=== PATIENT | female | born 1955 | race Caucasian/White ===

== ENCOUNTER → 2022-08-18 | Outpatient (CLI) | payer MEDICARE | END | disposition home or self-care (01) | LOC: LABWHC1 10:46 | PROVIDERS: ATTEND Nurse Practitioner Family | DX: K90.0 Celiac disease (principal) | CPT/HCPCS: 36415; 83516 ==

== ENCOUNTER → 2023-09-20 | Outpatient (CLI) | payer MEDICARE ==
--- NOTE | 2023-09-21 18:08 | MR ---
EXAMINATION TYPE: MR knee LT wo con DATE OF EXAM: 09/20/2023 COMPARISON: None HISTORY: Left knee pain x 6 mos. TECHNIQUE: Multiplanar, multisequence imaging of the left knee is performed without IV contrast. FINDINGS: There is a focal area of abnormal signal intensity in the subchondral area of the medial aspect of th e medial femoral condyle consistent with an osteochondral defect. There is no loose isolated bone fra gment. There is marked osteoarthritis in the medial compartment where there is moderate to marked cartilage thinning, hypertrophic spurring and displacement of the medial meniscus medially. There are complex t ears of the body and posterior horn of the medial meniscus. There is mild osteoarthritic change of the lateral compartment and knee where there is hypertrophic s purring and mild cartilage thinning. There is a vertical tear of the posterior horn of the lateral me niscus. The cruciate and medial collateral ligaments are intact. There is marked abnormal signal intensity in the proximal lateral collateral ligament at its proximal attachment consistent with partial tear or severe strain. The patellar and quadriceps tendons are normal. There is abnormal diffuse signal intensity with linear cartilaginous defects in the cartilage of the medial patellar facet consistent with chondromalacia patella . There is a small joint effusion. 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 Impression: 1. 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 2. Severe strain or partial tearing of the proximal lateral collateral ligament. 3. Complex tear of the medial meniscus and vertical tear of the posterior horn of the lateral meniscu s. 4. Small joint effusion and Gracia's cyst as described above.
== END | disposition home or self-care (01) ==
LOC: RADMRIMAIN 10:45
PROVIDERS: ATTEND Orthopaedic Surgery
DX: M17.12 Unilateral primary osteoarthritis, left knee (principal); S83.242A Other tear of medial meniscus, current injury, left knee, initial encounter; S83.282A Other tear of lateral meniscus, current injury, left knee, initial encounter

== ENCOUNTER 2023-10-05 09:31 | Day surgery (SDC) | payer MEDICARE ==
[2023-09-29 14:07] VITALS: BMI 31.2
[2023-10-05 10:46] VITALS: TEMP 97.4
[2023-10-05] MEDS: LIDOCAINE 1% (10MG/ML) FOR IV START INTRADERMA ONE (10:46)
[2023-10-05] MEDS: IV FLUID CONTINUATION 1,000 ML IV ONE ×2 (10:46)
[2023-10-05] MEDS: LACTATED RINGERS 1,000 ML IV SCH (10:46)
[2023-10-05] MEDS ORDERED: PROPOFOL 10 MG/ML 20 ML VIAL IV ONE (11:27)
--- NOTE | 2023-10-05 11:43 | P.PCN ---
Date of Procedure: 10/05/23 Procedure(s) Performed: BRIEF HISTORY: Patient is a 68-year-old pleasant white female scheduled for an elective colonoscopy as a part of screening for colon cancer. PROCEDURE PERFORMED: Colonoscopy. PREOPERATIVE DIAGNOSIS: Screening for colon cancer. IV sedation per Anesthesia. PROCEDURE: After informed consent was obtained, the patient, was brought into the endoscopy unit. IV sedation was administered by Anesthesia under continuous monitoring. Digital rectal examination was normal. Initially the Olympus CF-160 flexible video colonoscope was then inserted in the rectum, gradually advanced into the cecum without any difficulty. Careful examination was performed as the scope was gradually being withdrawn. Ileocecal valve and the appendiceal orifice were visualized and appeared normal. Prep was excellent. Mucosa of the cecum, ascending colon, transverse colon, descending colon, sigmoid colon, and rectum appeared normal. Retroflexion was performed in the rectum and no lesions were seen. The patient tolerated the procedure well. IMPRESSION: Normal-appearing colon from rectum to cecum with no evidence of colorectal neoplasia. RECOMMENDATIONS: Findings of this examination were discussed with the patient as well as her family. She was advised to have repeat screening colonoscopy in 10 years..
[2023-10-05 12:14] VITALS: BP 138/90; PULSE 72; RESP 20
== END 2023-10-05 12:15 | disposition home or self-care (01) ==
LOC: ORWHC2ENDO 09:31
PROVIDERS: ATTEND Internal Medicine Gastroenterology
DX: K21.9 Gastro-esophageal reflux disease without esophagitis (principal); K58.9 Irritable bowel syndrome, unspecified; J45.909 Unspecified asthma, uncomplicated; E78.5 Hyperlipidemia, unspecified; Z79.899 Other long term (current) drug therapy; Z79.51 Long term (current) use of inhaled steroids
CPT/HCPCS: J2704; G0121

== ENCOUNTER 2023-12-23 06:04 | Day surgery (SDC) | payer MEDICARE ==
[2023-12-17 08:30] VITALS: BMI 32.2
[2023-12-23] MEDS ORDERED: LIDOCAINE 1% (10MG/ML) FOR IV START INTRADERMA PRN (06:29)
[2023-12-23] MEDS ORDERED: MIDAZOLAM 2 MG/2 ML VIAL IV PRN (06:29)
[2023-12-23] MEDS ORDERED: fentaNYL (PF) 50 MCG/ML 2 ML AMP IVP PRN (06:29)
[2023-12-23] MEDS: IV FLUID CONTINUATION 1,000 ML IV ONE (06:55)
[2023-12-23] MEDS: ONDANSETRON 4 MG/2 ML VIAL IVP ONE (07:08)
[2023-12-23] MEDS: LACTATED RINGERS 1,000 ML IV SCH (07:08)
[2023-12-23] MEDS: DEXAMETHASONE SOD PHOSPHATE 4 MG/ML 1 ML VIAL IV ONE (07:08)
[2023-12-23] MEDS ORDERED: fentaNYL (PF) 50 MCG/ML 2 ML AMP ONE (07:23)
[2023-12-23] MEDS ORDERED: MIDAZOLAM 2 MG/2 ML VIAL ONE (07:23)
[2023-12-23] MEDS ORDERED: PROPOFOL 10 MG/ML 20 ML VIAL IV ONE (07:23)
[2023-12-23] MEDS ORDERED: LIDOCAINE 1% INJ 10MG/ML (20 ML MDV) ONE (07:23)
[2023-12-23] MEDS ORDERED: KETOROLAC 15 MG/ML 1 ML VIAL ONE (07:23)
[2023-12-23] MEDS: BUPIVACAINE (PF) 0.25% 30 ML VIAL MISCELLANE ONE (08:02)
[2023-12-23] MEDS: HYDROmorphone 0.5 MG/0.5 ML SYRINGE IVP PRN (08:16)
--- NOTE | 2023-12-23 08:17 | P.OP ---
Date of Procedure: 12/23/23 Preoperative Diagnosis: Internal derangement left knee Postoperative Diagnosis: 1. Tear medial and lateral meniscus left knee 2. Grade IV chondromalacia medial femoral condyle left knee 3. Grade IV chondromalacia femoral sulcus left knee 4. Reactive synovitis medial, lateral and suprapatellar compartments left knee Procedure(s) Performed: 1. Arthroscopic partial medial and lateral meniscectomy left knee 2. Arthroscopic microfracture medial femoral condyle left knee 3. Arthroscopic microfracture femoral sulcus left knee 4. Arthroscopic partial synovectomy medial, lateral and suprapatellar compartments left knee Anesthesia: TANIYAA, local Surgeon: Carl Lau Estimated Blood Loss (ml): 6 Pathology: none sent Condition: stable Disposition: PACU Indications for Procedure: 68-year-old patient seen with progressive left knee pain. After having treatment options discussed, she elected to proceed with arthroscopy. Operative Findings: See description of procedure Description of Procedure: Patient was taken to the operative suite. Patient underwent a general anesthetic by the department of anesthesia. Patient was given preoperative antibiotics. The left lower extremity was placed in a well-padded arthroscopic leg dumas. The left leg was prepped and draped in the normal sterile orthopedic fashion. A lateral parapatellar and suprapatellar incision was made. Trochars were inserted. Arthroscopy was initiated. Suprapatellar pouch revealed diffuse thick reactive synovitis. The patellofemoral joint appeared to articulate congruently. There was grade II/III chondromalacia patella and grade III/IV chondromalacia of the femoral sulcus with osteochondral flap tears present. The scope was guided into the medial gutter. No loose bodies or plica were identified. The scope was then guided into the medial compartment. A medial parapatellar incision was made. Trocar inserted followed by probe. Was a complex tear involving the posterior horn medial meniscus. There were grade III/IV chondromalacia changes medial femoral condyle with some osteochondral flap tears present. There was thick reactive synovitis anteriorly. I performed a partial medial meniscectomy getting down to stable meniscal tissue. I performed a chondroplasty of the medial femoral condyle getting down to stable osteochondral tissue. I performed a partial synovectomy decompressing the reactive synovitis. I did note an area of grade IV chondromalacia/exposed bone along the medial femoral condyle measuring just over a centimeter. I introduced a microfracture awl and I performed a microfracture to that area penetrating the bone with resultant bleeding at the microfracture site. The residual meniscus was stable. The residual osteochondral surface was stable. There was good decompression of the synovitis. Scope and probe were then guided into the intercondylar notch. Cruciates were identified, probed and found to be stable. The scope and probe were then guided into lateral compartment. There was a tear involving the mid body of the lateral meniscus. There were grade I/II chondromalacia changes throughout the lateral compartment without tears. There was thick reactive synovitis anteriorly. I performed a partial lateral meniscectomy getting down to stable meniscal tissue. I performed a partial synovectomy decompressing the reactive synovitis. The residual meniscus was stable. There was good decompression of the synovitis. The scope was in guided back into the suprapatellar compartment. I introduced a motorized shaver into the suprapatellar compartment. I performed a chondroplasty of the femoral sulcus getting down to stable osteochondral tissue. I performed a partial synovectomy decompressing the reactive synovitis. I did note an area of exposed bone along the medial femoral condyle measuring just under centimeter. I introduced a microfracture awl and I performed a microfracture to the area of exposed bone femoral sulcus penetrating the bone with resultant bleeding at the microfracture site. The residual osteochondral surface was probed and was stable. There was good decompression of the synovitis. I took 1 more look around the entire knee, no residual debris. Instruments were now removed from the joint. The joint was infiltrated with .25% Marcaine. Steri-Strips were applied to the portal sites. Sterile dressings were applied. The patient was placed into a [place] hose. No tourniquet was utilized. The patient was awakened, transferred to a bed and taken to recovery stable satisfactory condition.
[2023-12-23 08:35] VITALS: TEMP 96.9
[2023-12-23 08:44] VITALS: RESP 16
[2023-12-23 09:10] VITALS: BP 134/78; PULSE 76
--- NOTE | 2023-12-23 14:50 | HP ---
HISTORY AND PHYSICAL DATE OF SCHEDULED SURGERY: 12/23/2023. HISTORY OF PRESENT ILLNESS: Maritza Harris, 68-year-old patient seen with progressive left knee pain. We discussed options regarding treatment. She elected to proceed with left knee arthroscopy. Consent obtained. PAST MEDICAL HISTORY: IBS. PAST SURGICAL HISTORY: Breast biopsy, knee arthroscopy. MEDICATIONS: 1. Prilosec. 2. Zoloft. 3. Ibuprofen. ALLERGIES: None. SOCIAL HISTORY: She denies tobacco use. PHYSICAL EVALUATION OF THE LEFT KNEE: Her range of motion is 0-125 degrees. Mild effusion. Tenderness, medial joint line. Positive medial David's. Ligaments stable. Hip rotation without pain. Distal neurovascular exam intact. IMAGING: Left knee radiographs reveal moderate osteoarthritis. MRI left knee revealed a complex medial meniscal tear, moderate osteoarthritis, effusion, and Gracia cyst. IMPRESSION: 1. Internal derangement of left knee with medial meniscal tear. 2. History of IBS. PLAN: Left knee arthroscopy with partial medial meniscectomy and debridement. MMODL / IJN: [id number] /
== END 2023-12-23 09:31 | disposition home or self-care (01) ==
LOC: OR 06:04
PROVIDERS: ATTEND Orthopaedic Surgery
DX: M23.92 Unspecified internal derangement of left knee